=== PATIENT | female | born 1980 | race Caucasian/White ===

== ENCOUNTER 2024-03-19 11:52 | Outpatient (CLI) | payer OTHER ==
--- NOTE | 2024-03-19 16:17 | Ultrasound Report ---
PROCEDURE: Soft Tissue Head or Neck INDICATIONS: ENLARGED THYROID TECHNIQUE: Real-time scanning was performed of the thyroid gland, with image documentation. COMPARISON: None FINDINGS: Right: Thyroid lobe measures 4.9 x 1.2 x 1.5 cm. Left: Thyroid lobe measures 4.7 x 0.8 x 1.5 cm Isthmus: 0.2 cm thick. Echotexture: Homogeneous. No thyroid nodules. IMPRESSION: Normal size and appearance of the thyroid. No nodules. Reviewed by: Masood Handy MD on 03/19/2024 4:15 PM PDT Approved by: Masood Handy MD on 03/19/2024 4:15 PM PDT Station ID: [id number]
== END 2024-03-19 11:53 | disposition home or self-care (01) ==
LOC: DI 11:52
PROVIDERS: ATTEND Family Medicine
DX: E04.9 Nontoxic goiter, unspecified (principal)

== ENCOUNTER 2024-03-26 09:56 | Outpatient (CLI) | payer OTHER ==
--- NOTE | 2024-03-27 09:11 | Mammography Report ---
BILATERAL DIGITAL SCREENING MAMMOGRAM 3D/2D: 03/26/2024 CLINICAL: Routine screening. Baseline exam. No prior exams were available for comparison. There are scattered areas of fibroglandular density in both breasts (category b / 25%-50% glandular t issue). No significant masses, calcifications, or other findings are seen in either breast. IMPRESSION: NEGATIVE There is no mammographic evidence of malignancy. A 1 year screening mammogram is recommended. Based on the Tyrer Cuzick model (a risk assessment model) the patient's lifetime risk is 14.9% and he r 10 year risk is 2.1%. According to the ACR, ACS, and NCCN guidelines, an annual breast MRI exam nasrin ng with mammogram is recommended if the patient's lifetime risk is 20% or greater. This exam was interpreted at Station ID: [id number]. NOTE: For mammograms, a report in lay terms will be sent to the patient. Approximately 15% of breast malignancies will not be visualized mammographically. In the management of a palpable breast mass, a negative mammogram must not discourage biopsy of a clinically suspicious lesion. Electronically Signed By: Silvano [email or web address]/[email or web address]:03/26/2024 12:32:43 letter sent: No_Letter ACR BI-RADS Category 1: Negative 3341F PARENCHYMAL PATTERN: (A) - The breast(s) demonstrate(s) scattered fibroglandular densities. BI-RADS CATEGORY: (1) - 1 RECOMMENDATION: (ANNUAL) - Recommend routine annual screening mammography. [id number] 1 year screening LATERALITY: (B)
== END 2024-03-26 09:57 | disposition home or self-care (01) ==
LOC: DI 09:56
DX: Z12.31 Encounter for screening mammogram for malignant neoplasm of breast (principal); R92.323 Mammographic fibroglandular density, bilateral breasts

== ENCOUNTER 2024-03-31 09:29 | Emergency (ER) | payer OTHER ==
[2024-03-31 09:56] VITALS: BP 161/119; O2SAT 99
--- NOTE | 2024-03-31 10:08 | ED Physician Documentation ---
PD HPI LOWER EXT INJURY - Stated complaint Stated Complaint: RT FOOT TOE PX - Chief complaint Chief Complaint: Ext Problem - History obtained from History obtained from: Patient - History of Present Illness PD HPI LOW EXT INJURY LOCATION: Right, Toe Type of injury: Blunt / blow (she tripped on her dog's leash last evening and stumbled, jamming great toe. Had pain then and worse this morning with brusing color and swelling.) Where injury occurred: Home Timing - onset: Last night PD PAST MEDICAL HISTORY - Past Medical History Past Medical History: Yes Cardiovascular: Hypertension - Past Surgical History HEENT: Tonsil/Adenoidectomy - Allergies Allergies/Adverse Reactions: Allergies Allergy/AdvReac Type Severity Reaction Status Date / Time No Known Drug Allergies Allergy Verified 03/31/24 09:44 - Social History Does the pt smoke?: No Smoking Status: Never smoker Does the pt drink ETOH?: No Does the pt have substance abuse?: No - POLST Patient has POLST: No PD ED PE NORMAL - Vitals Vital signs reviewed: Yes - General General: Alert and oriented X 3, Well developed/nourished - Derm Derm: Normal color, Warm and dry - Extremities Extremities: Other (right great toe with tender at MTP and proximal phalanx, swelling and purple bruising. normal color and cap refill at tip. ) Results - Vitals Vitals: Vital Signs - 24 hr 03/31/24 09:38 Temperature 36.4 C L Heart Rate 74 Respiratory 15 Rate Blood Pressure 161/119 H O2 Saturation 99 Oxygen O2 Source Room air - Rads (name of study) toes Relevant Findings:: Prelim report reviewed, EMP independent interpretation of test (no fractures) PD Medical Decision Making - ED course Complexity details: reviewed results (no fractures. ), considered differential (sprain, bruise, or fracture. Can get xray to assess. ), d/w patient Departure - Departure Disposition: 01 Home, Self Care Clinical Impression: Toe sprain Qualifiers: Encounter type: initial encounter Qualified Code(s): S93.509A - Unspecified spr ain of unspecified toe(s), initial encounter Condition: Stable Record reviewed to determine appropriate education?: Yes Instructions: ED Sprain Toe Follow-Up: [facility] [Provider Group] [facility] [Provider Group] Comments: Your x-ray is normal appearance of the bones. No fractures or dislocations. Obviously your toe was injured with the bruising and swelling and so soft tissue injury such as the ligaments of the joint and the tendons can be injured. Just a good bruising from impact could cause some of this as well. We would presume that you have some partial tear of some of the ligaments given the degree of swelling and bruising. This can take still 2 to 4 weeks to heal up well especially on the great toe which would use more. If its mainly just impact bruising and a sprain, it might get better within even a week or so. Use the firm soled shoe to reduce flex and motion. Ice elevate and rested often today and tomorrow to help reduce swelling. Anti-inflammatory such as ibuprofen or naproxen 2 to 3 tablets 3 times daily make sense over the next several days to week. Add Tylenol every 4-6 hours if needed. Progress activity as tolerated. There is more range for healing with soft tissue injuries such that as you are feeling better you can be doing more activity. I would still have the support on the foot and toe for a few weeks ago. Recheck if not improving well in a reasonable fashion over the next couple of weeks. Forms: PCP List Discharge Date/Time: 03/31/24 11:23
[2024-03-31] MEDS: IBUPROFEN 800 MG TABLET PO STA (10:41)
--- NOTE | 2024-03-31 10:55 | XRAY Report ---
PROCEDURE: Toe(s) 2+V RT INDICATIONS: great toe injury TECHNIQUE: 3 views of the first toe(s) acquired. COMPARISON: None. FINDINGS: Bones: No displaced fracture. No dislocation. Soft tissues: No suspicious calcifications. IMPRESSION: No acute radiographic abnormality. If there is high concern for occult injury, consider repeat radiog gertrudis or cross-sectional imaging. Reviewed by: Eagle Moore MD on 03/31/2024 10:54 AM PDT Approved by: Eagle Moore MD on 03/31/2024 10:54 AM PDT Station ID: [id number]
== END 2024-03-31 11:23 | disposition home or self-care (01) ==
LOC: ED 09:29
DX: S93.501A Unspecified sprain of right great toe, initial encounter (principal); W01.0XXA Fall on same level from slipping, tripping and stumbling without subsequent striking against object, initial encounter
CPT/HCPCS: 73660; 99283; A9270